=== PATIENT | female | born 1995 | race Caucasian/White ===

== ENCOUNTER 2016-07-09 23:03 | Emergency (ER) | payer OTHER ==
[~2016-07-09] VITALS: Ht 152.4 cm; Wt 62.6 kg
[~2016-07-09 23:03] MED LIST: AMOXICILLIN500 MG PO; CHERATUSSIN AC240 ML PO; CIPRO500 MG PO; DICLEGIS PO; MOTRIN600 MG PO; NAPROSYN500 MG PO; PREDNISONE10 MG PO; PRENATAL PO; PRENATAL1 TA7 PO; TERCONAZOLE0.4% V; VENTOLIN H0.09 MG/AC INH; ZOFRAN4 MG PO; Zofran4 MG PO
[2016-07-10] MEDS ORDERED: NAPROSYN500 MG PO (01:01)
== END 2016-07-10 01:44 | disposition home or self-care (01) ==
LOC: ED 23:03
DX: M25.461 Effusion, right knee (principal); F17.200 Nicotine dependence, unspecified, uncomplicated; Z91.040 Latex allergy status

== ENCOUNTER 2016-10-24 19:43 | Emergency (ER) | payer OTHER ==
[~2016-10-24] VITALS: Ht 152.4 cm; Wt 54.4 kg
[2016-10-24] MEDS ORDERED: AUGMENTIN 875875 MG PO (20:45)
== END 2016-10-24 22:09 | disposition home or self-care (01) ==
LOC: ED 19:43
DX: H65.93 Unspecified nonsuppurative otitis media, bilateral (principal); F17.200 Nicotine dependence, unspecified, uncomplicated; Z98.890 Other specified postprocedural states; Z91.041 Radiographic dye allergy status

== ENCOUNTER 2016-12-02 19:48 | Emergency (ER) | payer OTHER ==
[~2016-12-02] VITALS: Ht 152.4 cm; Wt 56.7 kg
[~2016-12-02 19:48] MED LIST changes: +AUGMENTIN 875875 MG PO
[2016-12-02] MEDS ORDERED: AMOXICILLIN500 M2 PO (20:51)
[2016-12-02] MEDS ORDERED: PREDNISONE20 M1 PO (20:51)
== END 2016-12-02 20:58 | disposition home or self-care (01) ==
LOC: ED 19:48
DX: J20.9 Acute bronchitis, unspecified (principal); F17.210 Nicotine dependence, cigarettes, uncomplicated; Z91.040 Latex allergy status

== ENCOUNTER 2017-11-22 18:30 | Emergency (ER) | payer OTHER ==
[~2017-11-22] VITALS: Ht 152.4 cm; Wt 61.2 kg
[~2017-11-22 18:30] MED LIST changes: +AMOXICILLIN500 M2 PO; +PREDNISONE20 M1 PO
[2017-11-22 18:51] LABS: HEMATOCRIT 42.2 % (37.0-47.0); HEMOGLOBIN 14.8 g/dl (12.0-16.0); MEAN CORPUSCULAR HGB 31.6 pg (27.0-31.0); MEAN CORPUSCULAR HGB CONC 35.1 g/dl (33.0-37.0); MEAN PLATELET VOLUME 9.5 fl (9.6-12.3); PLATELET COUNT AUTOMATED 282 10*3/uL (130-400); RED BLOOD COUNT 4.69 10*6/uL (4.10-5.10); RED CELL DISTRI WIDTH 12.2 % (0-14.5); WHITE BLOOD COUNT 14.6 10*3/uL (4.8-10.8)
[2017-11-22 19:03] LABS: ACT PARTIAL THROMBO TIME 24.8 SECONDS (20.8-31.5)
[2017-11-22 19:06] LABS: ALBUMIN 3.9 gm/dl (3.1-4.5); ALKALINE PHOSPHATASE 62 U/L (45-117); BUN 19 mg/dl (7-24); CHLORIDE 105 mmol/L (98-107); LIPASE 102 U/L (73-393); SGOT/AST 15 IU/L (3-35); SGPT/ALT 24 U/L (12-78); SODIUM 137 mmol/L (136-145); TOTAL PROTEIN 7.5 gm/dL (6.4-8.2)
[2017-11-22 19:16] LABS: TOTAL CELLS COUNTED 100 #CELLS
[2017-11-22 19:17] LABS: PLATELET SUFFICIENCY NORMAL (NORMAL)
[2017-11-22 20:15] LABS: BILIRUBIN NEGATIVE (NEGATIVE); BLOOD NEGATIVE (NEGATIVE); CLARITY SL CLOUDY (CLEAR); COLOR YELLOW (YELLOW); GLUCOSE NEGATIVE (NEGATIVE); KETONE NEGATIVE (NEGATIVE); LEUKO ESTERASE TRACE (NEGATIVE); NITRITE NEGATIVE (NEGATIVE); SPECIFIC GRAVITY 1.025 (1.005-1.030); UROBILINOGEN 0.2 E.U./dl (0.2-1.0)
[2017-11-22 20:26] LABS: BACTERIA 2+; EPITHELIAL CELLS 16-20; RBC 0-2 rbc/hpf (0-2)
[2017-11-22] MEDS ORDERED: ZOFRAN ODT4 MG SL (22:28)
== END 2017-11-22 22:35 | disposition home or self-care (01) ==
LOC: ED 18:30
PROVIDERS: Nurse Practitioner Family
DX: R10.31 Right lower quadrant pain (principal); R19.7 Diarrhea, unspecified; F17.200 Nicotine dependence, unspecified, uncomplicated; Z91.040 Latex allergy status

== ENCOUNTER 2018-02-02 21:36 | Emergency (ER) | payer OTHER ==
[~2018-02-02] VITALS: Ht 152.4 cm; Wt 72.6 kg
[~2018-02-02 21:36] MED LIST changes: +ZOFRAN ODT4 MG SL
[2018-02-02] MEDS ORDERED: PENICILLIN VK500 MG PO (23:39)
== END 2018-02-03 00:35 | disposition home or self-care (01) ==
LOC: ED 21:36
DX: K04.7 Periapical abscess without sinus (principal); F17.200 Nicotine dependence, unspecified, uncomplicated; Z91.041 Radiographic dye allergy status

== ENCOUNTER 2018-07-29 21:53 | Emergency (ER) | payer OTHER ==
[~2018-07-29] VITALS: Ht 152.4 cm; Wt 77.1 kg
[~2018-07-29 21:53] MED LIST changes: +PENICILLIN VK500 MG PO
== END 2018-07-30 01:17 | disposition home or self-care (01) ==
LOC: ED 21:53
DX: G43.909 Migraine, unspecified, not intractable, without status migrainosus (principal); Z91.040 Latex allergy status

== ENCOUNTER 2018-12-12 18:07 | Emergency (ER) | payer OTHER ==
[~2018-12-12] VITALS: Ht 152.4 cm; Wt 79.4 kg
[2018-12-12] MEDS ORDERED: PREDNISONE20 M1 PO (21:50)
[2018-12-12] MEDS ORDERED: TESSALON PERLE100 M1 PO (21:50)
[2018-12-12] MEDS ORDERED: PROVENTIL HFA6.7 GM INH (21:50)
== END 2018-12-12 22:00 | disposition home or self-care (01) ==
LOC: ED 18:07
DX: J40 Bronchitis, not specified as acute or chronic (principal); F17.200 Nicotine dependence, unspecified, uncomplicated; Z91.040 Latex allergy status; Z79.2 Long term (current) use of antibiotics

== ENCOUNTER 2019-02-11 22:41 | Emergency (ER) | payer OTHER ==
[~2019-02-11] VITALS: Ht 152.4 cm; Wt 69.4 kg
[~2019-02-11 22:41] MED LIST changes: +PROVENTIL HFA6.7 GM INH; +TESSALON PERLE100 M1 PO
[2019-02-11 23:16] LABS: BILIRUBIN NEGATIVE (NEGATIVE); BLOOD NEGATIVE (NEGATIVE); CLARITY SL CLOUDY (CLEAR); COLOR YELLOW (YELLOW); GLUCOSE NEGATIVE (NEGATIVE); KETONE NEGATIVE (NEGATIVE); LEUKO ESTERASE TRACE (NEGATIVE); NITRITE NEGATIVE (NEGATIVE); SPECIFIC GRAVITY >= 1.030 (1.005-1.030); UROBILINOGEN 0.2 E.U./dl (0.2-1.0)
[2019-02-11 23:22] LABS: BACTERIA 1+; EPITHELIAL CELLS 45-50
[2019-02-11 23:37] LABS: BASO # 0.1 10*3/uL (0.0-0.1); BASO % 0.3 % (0.0-1.0); EOS % 0.2 % (1.0-4.0); HEMATOCRIT 43.3 % (37.0-47.0); HEMOGLOBIN 15.2 g/dl (12.0-16.0); LYMPH # 4.6 10*3/uL (1.3-4.4); LYMPH % 28.5 % (27.0-41.0); MEAN CELL VOLUME 91.5 fl (81.0-99.0); MEAN CORPUSCULAR HGB 32.1 pg (27.0-31.0); MEAN CORPUSCULAR HGB CONC 35.1 g/dl (33.0-37.0); MEAN PLATELET VOLUME 9.3 fl (9.6-12.3); MONO # 1.2 10*3/uL (0.1-1.0); MONO % 7.7 % (3.0-9.0); NEUT # 10.1 10*3/uL (2.3-7.9); NEUT % 63.1 % (47.0-73.0); PLATELET COUNT AUTOMATED 302 10*3/uL (130-400); RED BLOOD COUNT 4.73 10*6/uL (4.10-5.10); RED CELL DISTRI WIDTH 12.4 % (0-14.5)
[2019-02-11 23:54] LABS: ALKALINE PHOSPHATASE 55 U/L (45-117); BUN 13 mg/dl (7-24); CHLORIDE 110 mmol/L (98-107); CREATININE 0.63 mg/dL (0.55-1.02); LIPASE 63 U/L (73-393); POTASSIUM 3.9 mmol/L (3.5-5.1); SGOT/AST 10 IU/L (3-35); SGPT/ALT 20 U/L (12-78); SODIUM 138 mmol/L (136-145); TOTAL PROTEIN 7.1 gm/dL (6.4-8.2)
[2019-02-12] MEDS ORDERED: ZOFRAN4 MG PO (00:44)
[2019-02-14 08:06] LABS: GONOCOCCUS BY NAA Negative (Negative)
== END 2019-02-12 01:00 | disposition home or self-care (01) ==
LOC: ED 22:41
PROVIDERS: Physician Assistant
DX: A08.4 Viral intestinal infection, unspecified (principal); R19.7 Diarrhea, unspecified; R11.2 Nausea with vomiting, unspecified; F17.200 Nicotine dependence, unspecified, uncomplicated; Z91.040 Latex allergy status; Z79.2 Long term (current) use of antibiotics; Z79.899 Other long term (current) drug therapy

== ENCOUNTER 2019-03-07 14:00 | Emergency (ER) | payer OTHER ==
[~2019-03-07] VITALS: Ht 152.4 cm; Wt 71.7 kg
[2019-03-07 15:18] LABS: BASO % 0.3 % (0.0-1.0); EOS % 0.5 % (1.0-4.0); HEMATOCRIT 48.2 % (37.0-47.0); HEMOGLOBIN 16.4 g/dl (12.0-16.0); LYMPH # 1.7 10*3/uL (1.3-4.4); LYMPH % 19.7 % (27.0-41.0); MEAN CELL VOLUME 92.9 fl (81.0-99.0); MEAN CORPUSCULAR HGB 31.6 pg (27.0-31.0); MEAN PLATELET VOLUME 9.5 fl (9.6-12.3); MONO # 0.8 10*3/uL (0.1-1.0); MONO % 8.7 % (3.0-9.0); NEUT # 6.3 10*3/uL (2.3-7.9); NEUT % 70.6 % (47.0-73.0); PLATELET COUNT AUTOMATED 277 10*3/uL (130-400); RED BLOOD COUNT 5.19 10*6/uL (4.10-5.10); RED CELL DISTRI WIDTH 12.3 % (0-14.5); WHITE BLOOD COUNT 8.9 10*3/uL (4.8-10.8)
[2019-03-07 15:32] LABS: ALBUMIN 4.4 gm/dl (3.1-4.5); ALKALINE PHOSPHATASE 66 U/L (45-117); BUN 10 mg/dl (7-24); CHLORIDE 108 mmol/L (98-107); CREATININE 0.76 mg/dL (0.55-1.02); POTASSIUM 3.8 mmol/L (3.5-5.1); SGOT/AST 18 IU/L (3-35); SGPT/ALT 23 U/L (12-78); SODIUM 138 mmol/L (136-145); TOTAL PROTEIN 7.9 gm/dL (6.4-8.2)
[2019-03-07] MEDS ORDERED: ZYRTEC10 M2 PO (17:27)
[2019-03-07] MEDS ORDERED: PREDNISONE20 M1 PO (17:27)
== END 2019-03-07 17:28 | disposition home or self-care (01) ==
LOC: ED 14:00
PROVIDERS: Physician Assistant
DX: B34.9 Viral infection, unspecified (principal); R19.7 Diarrhea, unspecified; R11.10 Vomiting, unspecified; Z91.040 Latex allergy status

== ENCOUNTER 2019-04-23 23:32 | Emergency (ER) | payer OTHER ==
[~2019-04-23] VITALS: Ht 152.4 cm; Wt 68.0 kg
[~2019-04-23 23:32] MED LIST changes: +ZYRTEC10 M2 PO
== END 2019-04-24 00:41 | disposition home or self-care (01) ==
LOC: ED 23:32
DX: R11.10 Vomiting, unspecified (principal); Z79.899 Other long term (current) drug therapy; G43.909 Migraine, unspecified, not intractable, without status migrainosus; Z91.040 Latex allergy status

== ENCOUNTER 2019-05-12 20:18 | Emergency (ER) | payer OTHER ==
[~2019-05-12] VITALS: Ht 152.4 cm; Wt 68.0 kg
[2019-05-12 21:08] LABS: HEMOGLOBIN 14.5 g/dl (12.0-16.0); MEAN CELL VOLUME 92.3 fl (81.0-99.0); MEAN CORPUSCULAR HGB 31.9 pg (27.0-31.0); MEAN CORPUSCULAR HGB CONC 34.5 g/dl (33.0-37.0); MEAN PLATELET VOLUME 9.4 fl (9.6-12.3); PLATELET COUNT AUTOMATED 272 10*3/uL (130-400); RED BLOOD COUNT 4.55 10*6/uL (4.10-5.10); RED CELL DISTRI WIDTH 12.6 % (0-14.5)
[2019-05-12 21:25] LABS: ALBUMIN 3.6 gm/dl (3.1-4.5); ALKALINE PHOSPHATASE 64 U/L (45-117); BUN 15 mg/dl (7-24); CHLORIDE 109 mmol/L (98-107); CREATININE 0.66 mg/dL (0.55-1.02); LIPASE 92 U/L (73-393); POTASSIUM 3.6 mmol/L (3.5-5.1); SGOT/AST 15 IU/L (3-35); SGPT/ALT 22 U/L (12-78); SODIUM 140 mmol/L (136-145); TOTAL PROTEIN 6.9 gm/dL (6.4-8.2)
[2019-05-12 21:27] LABS: ATYPICAL LYMPHS 6 % (0-0); TOTAL CELLS COUNTED 100 #CELLS
[2019-05-12 21:28] LABS: BURR CELLS FEW; PLATELET SUFFICIENCY NORMAL (NORMAL)
[2019-05-12 21:43] LABS: BILIRUBIN NEGATIVE (NEGATIVE); CLARITY SL CLOUDY (CLEAR); COLOR YELLOW (YELLOW); GLUCOSE NEGATIVE (NEGATIVE); KETONE NEGATIVE (NEGATIVE); SPECIFIC GRAVITY 1.015 (1.005-1.030)
[2019-05-12 21:44] LABS: BLOOD NEGATIVE (NEGATIVE); EPITHELIAL CELLS TNTC; LEUKO ESTERASE 2+ (NEGATIVE); NITRITE NEGATIVE (NEGATIVE); RBC 0-2 rbc/hpf (0-2); UROBILINOGEN 0.2 E.U./dl (0.2-1.0)
[2019-05-12 21:45] LABS: BACTERIA 1+; YEAST 1+
== END 2019-05-12 23:52 | disposition home or self-care (01) ==
LOC: ED 20:18
PROVIDERS: Emergency Medicine
DX: R10.30 Lower abdominal pain, unspecified (principal); R19.7 Diarrhea, unspecified; Z91.040 Latex allergy status; Z79.899 Other long term (current) drug therapy; Z79.2 Long term (current) use of antibiotics

== ENCOUNTER 2019-06-06 23:04 | Emergency (ER) | payer OTHER ==
[~2019-06-06] VITALS: Ht 152.4 cm; Wt 68.0 kg
[2019-06-06 23:49] LABS: MEAN CELL VOLUME 93.4 fl (81.0-99.0); MEAN CORPUSCULAR HGB 31.9 pg (27.0-31.0); MEAN CORPUSCULAR HGB CONC 34.1 g/dl (33.0-37.0); MEAN PLATELET VOLUME 9.3 fl (9.6-12.3); PLATELET COUNT AUTOMATED 287 10*3/uL (130-400); RED BLOOD COUNT 4.39 10*6/uL (4.10-5.10); RED CELL DISTRI WIDTH 12.5 % (0-14.5); WHITE BLOOD COUNT 15.2 10*3/uL (4.8-10.8)
[2019-06-07 00:03] LABS: ALBUMIN 3.4 gm/dl (3.1-4.5); ALKALINE PHOSPHATASE 54 U/L (45-117); BUN 17 mg/dl (7-24); CHLORIDE 110 mmol/L (98-107); CREATININE 0.62 mg/dL (0.55-1.02); POTASSIUM 3.9 mmol/L (3.5-5.1); SGOT/AST 26 IU/L (3-35); SGPT/ALT 36 U/L (12-78); SODIUM 139 mmol/L (136-145); TOTAL PROTEIN 6.7 gm/dL (6.4-8.2)
[2019-06-07 00:11] LABS: BASOPHILS 1 % (0-1); PLATELET SUFFICIENCY NORMAL (NORMAL); TOTAL CELLS COUNTED 100 #CELLS
[2019-06-07 00:20] LABS: BILIRUBIN NEGATIVE (NEGATIVE); BLOOD NEGATIVE (NEGATIVE); CLARITY CLEAR (CLEAR); COLOR YELLOW (YELLOW); GLUCOSE NEGATIVE (NEGATIVE); KETONE NEGATIVE (NEGATIVE); LEUKO ESTERASE NEGATIVE (NEGATIVE); NITRITE NEGATIVE (NEGATIVE); PH 6.5 (5.0-9.0); UROBILINOGEN 0.2 E.U./dl (0.2-1.0)
[2019-06-07 00:25] LABS: BACTERIA TRACE; EPITHELIAL CELLS 16-20
[2019-06-07] MEDS ORDERED: FLAGYL500 MG PO (01:48)
[2019-06-07] MEDS ORDERED: DICYCLOMINE HCL10 MG PO (01:48)
== END 2019-06-07 02:08 | disposition home or self-care (01) ==
LOC: ED 23:04
PROVIDERS: Emergency Medicine Emergency Medical Services
DX: K52.9 Noninfective gastroenteritis and colitis, unspecified (principal); G43.909 Migraine, unspecified, not intractable, without status migrainosus; F17.200 Nicotine dependence, unspecified, uncomplicated; Z91.040 Latex allergy status; Z79.899 Other long term (current) drug therapy

== ENCOUNTER 2019-08-07 22:35 | Emergency (ER) | payer OTHER ==
[~2019-08-07] VITALS: Ht 152.4 cm; Wt 77.1 kg
[~2019-08-07 22:35] MED LIST changes: +DICYCLOMINE HCL10 MG PO; +FLAGYL500 MG PO
[2019-08-08] MEDS ORDERED: FIORINAL 50-321 EACH PO (00:14)
== END 2019-08-08 00:56 | disposition home or self-care (01) ==
LOC: ED 22:35
DX: G43.511 Persistent migraine aura without cerebral infarction, intractable, with status migrainosus (principal); Z91.040 Latex allergy status

== ENCOUNTER 2020-07-13 17:11 | Emergency (ER) | payer OTHER ==
[~2020-07-13] VITALS: Ht 152.4 cm; Wt 81.6 kg
[~2020-07-13 17:11] MED LIST changes: +FIORINAL 50-321 EACH PO
[2020-07-13 18:38] LABS: BILIRUBIN Negative (Negative); BLOOD Negative (Negative); CLARITY Turbid (Clear); COLOR Yellow (Yellow); GLUCOSE Negative (Negative); KETONE Negative (Negative); LEUKO ESTERASE 2+ (Negative); NITRITE Negative (Negative); SPECIFIC GRAVITY 1.025 (1.001-1.030)
[2020-07-13 19:07] LABS: EPITHELIAL CELLS 51-100
[2020-07-13 19:56] LABS: BASO # 0.1 10*3/uL (0.0-0.1); BASO % 0.6 % (0.0-1.0); EOS # 0.2 10*3/uL (0.0-0.4); EOS % 2.2 % (1.0-4.0); LYMPH # 4.2 10*3/uL (1.3-4.4); LYMPH % 41.5 % (27.0-41.0); MEAN CELL VOLUME 91.1 fl (81.0-99.0); MEAN CORPUSCULAR HGB CONC 35.1 g/dl (33.0-37.0); MEAN PLATELET VOLUME 9.4 fl (9.6-12.3); MONO # 0.7 10*3/uL (0.1-1.0); MONO % 6.8 % (3.0-9.0); NEUT % 48.6 % (47.0-73.0); PLATELET COUNT AUTOMATED 324 10*3/uL (130-400); RED BLOOD COUNT 4.72 10*6/uL (4.10-5.10); RED CELL DISTRI WIDTH 11.9 % (0-14.5); WHITE BLOOD COUNT 10.2 10*3/uL (4.8-10.8)
[2020-07-13 20:18] LABS: ALBUMIN 3.5 gm/dl (3.1-4.5); ALKALINE PHOSPHATASE 59 U/L (45-117); BUN 17 mg/dl (7-24); CHLORIDE 110 mmol/L (98-107); CREATININE 0.64 mg/dL (0.55-1.02); POTASSIUM 4.2 mmol/L (3.5-5.1); SGOT/AST 15 IU/L (3-35); SGPT/ALT 21 U/L (12-78); SODIUM 137 mmol/L (136-145); TOTAL PROTEIN 7.6 gm/dL (6.4-8.2)
[2020-07-13] MEDS ORDERED: PYRIDIUM200 M1 PO (20:31)
[2020-07-13] MEDS ORDERED: CEFUROXIME AXE500 MG PO (20:32)
== END 2020-07-13 19:17 | disposition home or self-care (01) ==
LOC: ED 17:11
PROVIDERS: Physician Assistant
DX: R30.0 Dysuria (principal); Z91.040 Latex allergy status; Z79.899 Other long term (current) drug therapy; Z79.2 Long term (current) use of antibiotics

== ENCOUNTER → 2021-09-12 | Outpatient (CLI) | payer OTHER ==
[~2021-09-12] MED LIST changes: +CEFUROXIME AXE500 MG PO; +PYRIDIUM200 M1 PO
[2021-09-12 16:54] LABS: HEMATOCRIT 42.6 % (37.0-47.0); MEAN CELL VOLUME 90.6 fl (81.0-99.0); MEAN CORPUSCULAR HGB 32.3 pg (27.0-31.0); MEAN CORPUSCULAR HGB CONC 35.7 g/dl (33.0-37.0); MEAN PLATELET VOLUME 9.5 fl (9.6-12.3); RED BLOOD COUNT 4.7 10*6/uL (4.10-5.10); RED CELL DISTRI WIDTH 12.6 % (0-14.5); WHITE BLOOD COUNT 9.5 10*3/uL (4.8-10.8)
[2021-09-12 17:20] LABS: ALKALINE PHOSPHATASE 54 U/L (45-117); BUN 14 mg/dl (7-24); CHLORIDE 111 mmol/L (98-107); CHOLESTEROL 131 mg/dL (<200); CREATININE 0.79 mg/dL (0.55-1.02); FREE T4 0.93 ng/dl (0.76-1.46); LDL CHOLESTEROL 80 mg/dL (9-159); POTASSIUM 3.8 mmol/L (3.5-5.1); SGOT/AST 13 IU/L (3-35); SGPT/ALT 20 U/L (12-78); SODIUM 142 mmol/L (136-145); TOTAL PROTEIN 7.6 gm/dL (6.4-8.2); TRIGLYCERIDES 95 mg/dl (<150)
[2021-09-12 17:25] LABS: THYROID STIM HORMONE (HS) 0.442 uIU/ml (0.358-4.75)
[2021-09-12 17:27] LABS: VITAMIN D, 25-HYDROXY 23.6 ng/mL (30-100)
== END ==
LOC: LAB 16:35
PROVIDERS: ATTEND Family Medicine
DX: Z00.00 Encounter for general adult medical examination without abnormal findings (principal); E55.9 Vitamin D deficiency, unspecified; E78.00 Pure hypercholesterolemia, unspecified

== ENCOUNTER → 2022-06-09 | Outpatient (CLI) | payer OTHER | END | disposition home or self-care (01) | LOC: RAD 10:15 | PROVIDERS: ATTEND Family Medicine | DX: R07.89 Other chest pain (principal); R05.9 Cough, unspecified; R06.02 Shortness of breath ==

== ENCOUNTER → 2022-06-14 | Outpatient (CLI) | payer OTHER ==
[2022-06-14 11:59] LABS: HEMATOCRIT 41.4 % (37.0-47.0); MEAN CORPUSCULAR HGB 31.9 pg (27.0-31.0); MEAN PLATELET VOLUME 9.4 fl (9.6-12.3); RED BLOOD COUNT 4.55 10*6/uL (4.10-5.10); RED CELL DISTRI WIDTH 12.1 % (0-14.5); WHITE BLOOD COUNT 9.7 10*3/uL (4.8-10.8)
[2022-06-14 13:00] LABS: ALKALINE PHOSPHATASE 59 U/L (46-116); BUN 14 mg/dl (9-23); CHLORIDE 110 mmol/L (98-107); CHOLESTEROL 124 mg/dL (<200); LDL CHOLESTEROL 71 mg/dL (9-159); SGPT/ALT 24 U/L (10-49); TOTAL PROTEIN 7.2 gm/dL (6.0-8.0); TRIGLYCERIDES 111 mg/dl (<150)
[2022-06-14 13:02] LABS: VITAMIN D, 25-HYDROXY 60.2 ng/mL (30-100)
== END | disposition home or self-care (01) ==
LOC: LAB 10:52
PROVIDERS: ATTEND Family Medicine
DX: K58.9 Irritable bowel syndrome, unspecified (principal); E03.9 Hypothyroidism, unspecified; R51.9 Headache, unspecified; R53.83 Other fatigue

== ENCOUNTER 2022-10-16 20:25 | Emergency (ER) | payer OTHER ==
[~2022-10-16] VITALS: Ht 152.4 cm; Wt 81.6 kg
== END 2022-10-16 21:39 | disposition home or self-care (01) ==
LOC: ED 20:25
DX: S63.91XA Sprain of unspecified part of right wrist and hand, initial encounter (principal); G43.909 Migraine, unspecified, not intractable, without status migrainosus; Z91.040 Latex allergy status; Z79.899 Other long term (current) drug therapy; Z79.2 Long term (current) use of antibiotics; W23.0XXA Caught, crushed, jammed, or pinched between moving objects, initial encounter; Y93.89 Activity, other specified; Y92.89 Other specified places as the place of occurrence of the external cause; Y99.8 Other external cause status

== ENCOUNTER → 2022-12-11 | Outpatient (CLI) | payer OTHER ==
[2022-12-11 16:43] LABS: HEMATOCRIT 42.9 % (37.0-47.0); MEAN CELL VOLUME 90.3 fl (81.0-99.0); MEAN CORPUSCULAR HGB 32.4 pg (27.0-31.0); MEAN CORPUSCULAR HGB CONC 35.9 g/dl (33.0-37.0); MEAN PLATELET VOLUME 8.8 fl (9.6-12.3); RED BLOOD COUNT 4.75 10*6/uL (4.10-5.10); RED CELL DISTRI WIDTH 12.4 % (0-14.5); WHITE BLOOD COUNT 11.4 10*3/uL (4.8-10.8)
[2022-12-11 17:11] LABS: ALKALINE PHOSPHATASE 65 U/L (46-116); BUN 9 mg/dl (9-23); CHLORIDE 110 mmol/L (98-107); POTASSIUM 4.1 mmol/L (3.4-5.1); SGPT/ALT 18 U/L (5-49); TOTAL PROTEIN 7.6 gm/dL (6.0-8.0)
== END | disposition home or self-care (01) ==
LOC: LAB 16:15
PROVIDERS: ATTEND Family Medicine
DX: M25.562 Pain in left knee (principal); R60.9 Edema, unspecified; M79.10 Myalgia, unspecified site; M25.50 Pain in unspecified joint

== ENCOUNTER 2023-04-19 19:07 | Emergency (ER) | payer SELFPAY ==
[~2023-04-19] VITALS: Ht 154.9 cm; Wt 68.0 kg
[2023-04-19] MEDS ORDERED: TOPIRAMATE100 M2 PO (19:15)
== END 2023-04-19 21:18 | disposition home or self-care (01) ==
LOC: ED 19:07
DX: S06.0XAA Concussion with loss of consciousness status unknown, initial encounter (principal); M25.562 Pain in left knee; R42 Dizziness and giddiness; R11.0 Nausea; Z91.040 Latex allergy status; Z98.890 Other specified postprocedural states; W10.9XXA Fall (on) (from) unspecified stairs and steps, initial encounter; Y93.89 Activity, other specified; Y92.009 Unspecified place in unspecified non-institutional (private) residence as the place of occurrence of the external cause; Y99.8 Other external cause status

== ENCOUNTER 2023-08-20 23:00 | Emergency (ER) | payer OTHER ==
[~2023-08-20] VITALS: Ht 152.4 cm; Wt 72.6 kg
[~2023-08-20 23:00] MED LIST changes: +TOPIRAMATE100 M2 PO
== END 2023-08-21 03:58 | disposition left against medical advice (07) ==
LOC: ED 23:00
DX: M79.10 Myalgia, unspecified site (principal); Z91.040 Latex allergy status; Z53.21 Procedure and treatment not carried out due to patient leaving prior to being seen by health care provider

== ENCOUNTER → 2023-12-13 | Outpatient (CLI) | payer OTHER | END | disposition home or self-care (01) | LOC: RAD 12:04 | PROVIDERS: ATTEND Family Medicine | DX: M25.461 Effusion, right knee (principal) ==

== ENCOUNTER 2024-02-04 22:53 | Emergency (ER) | payer OTHER ==
[~2024-02-04] VITALS: Ht 165.1 cm; Wt 72.6 kg
[~2024-02-04 22:53] MED LIST changes: +Ondansetron4 MG PO
[2024-02-05] MEDS ORDERED: methylPREDNISolone sod succ 125 MG VIAL IM ONE (02:05)
[2024-02-05] MEDS ORDERED: PREDNISONE20 M1 PO (02:06)
[2024-02-05] MEDS ORDERED: ZITHROMAX250 MG PO (02:06)
== END 2024-02-05 02:11 | disposition home or self-care (01) ==
LOC: ED 22:53
DX: B34.9 Viral infection, unspecified (principal); Z20.822 Contact with and (suspected) exposure to COVID-19; R06.00 Dyspnea, unspecified; Z91.040 Latex allergy status

== ENCOUNTER 2024-09-24 09:08 | Emergency (ER) | payer OTHER ==
[~2024-09-24] VITALS: Wt 95.3 kg
[~2024-09-24 09:08] MED LIST changes: +ZITHROMAX250 MG PO
[2024-09-24] MEDS ORDERED: fentaNYL CITRATE/PF 50 MCG/ML SYRINGE IV ONE (09:20)
[2024-09-24] MEDS ORDERED: SODIUM CHLORIDE 0.9% 1,000 ML IV ONE (09:20)
[2024-09-24] MEDS ORDERED: IOHEXOL 300 MG/ML 100 ML VIAL IV ONE (09:30)
[2024-09-24 09:41] LABS: BASO # 0.0 10*3/uL (0.0-0.1); BASO % 0.5 % (0.0-1.0); EOS # 0.1 10*3/uL (0.0-0.4); EOS % 0.9 % (1.0-4.0); MEAN CELL VOLUME 91.0 fl (81.0-99.0); MEAN CORPUSCULAR HGB 30.7 pg (27.0-31.0); MEAN PLATELET VOLUME 9.4 fl (9.6-12.3); MONO # 0.7 10*3/uL (0.1-1.0); MONO % 8.3 % (3.0-9.0); NEUT # 4.1 10*3/uL (2.3-7.9); NEUT % 49.0 % (47.0-73.0); NUCLEATED RED BLOOD CELL 0.0 % (0.0-0.0); NUCLEATED RED BLOOD CELL 0.0 10*3/uL (0.0-0.0); PLATELET COUNT AUTOMATED 289 10*3/uL (130-400); RED CELL DISTRI WIDTH 12.0 % (0-14.5)
[2024-09-24 10:07] LABS: BUN 14 mg/dl (9-23); SGPT/ALT 19 U/L (5-49)
[2024-09-24] MEDS ORDERED: MELOXICAM15 MG PO (11:42)
== END 2024-09-24 12:01 | disposition home or self-care (01) ==
LOC: ED 09:08
PROVIDERS: Emergency Medicine
DX: M79.604 Pain in right leg (principal); M79.605 Pain in left leg; M25.512 Pain in left shoulder; M25.511 Pain in right shoulder; M25.562 Pain in left knee; M54.2 Cervicalgia; R10.11 Right upper quadrant pain; R10.12 Left upper quadrant pain; R60.0 Localized edema; G43.909 Migraine, unspecified, not intractable, without status migrainosus; Z91.040 Latex allergy status; V89.2XXA Person injured in unspecified motor-vehicle accident, traffic, initial encounter; Y93.55 Activity, bike riding; Y92.828 Other wilderness area as the place of occurrence of the external cause; Y99.8 Other external cause status

== ENCOUNTER 2024-10-11 21:11 | Emergency (ER) | payer SELFPAY ==
[~2024-10-11] VITALS: Ht 154.9 cm; Wt 76.2 kg
[~2024-10-11 21:11] MED LIST changes: +MELOXICAM15 MG PO
[2024-10-11 21:42] LABS: BILIRUBIN Negative (Negative); BLOOD 3+ (Negative); CLARITY Turbid (Clear); COLOR Yellow (Yellow); KETONE Negative (Negative); LEUKO ESTERASE Negative (Negative); NITRITE Negative (Negative); PH 6.5 (4.5-8.0); SPECIFIC GRAVITY 1.020 (1.001-1.030); UROBILINOGEN 0.2 E.U./dl (0.0-1.0)
[2024-10-11 21:52] LABS: WBC 0-2 wbc/hpf (0-5)
[2024-10-11 21:53] LABS: BACTERIA 2+; RBC 0-2 rbc/hpf (0-2)
[2024-10-11] MEDS ORDERED: MACROBID100 M1 PO (22:21)
== END 2024-10-11 22:36 | disposition home or self-care (01) ==
LOC: ED 21:11
PROVIDERS: Nurse Practitioner Family
DX: O02.81 Inappropriate change in quantitative human chorionic gonadotropin (hCG) in early pregnancy (principal); O08.83 Urinary tract infection following an ectopic and molar pregnancy; N39.0 Urinary tract infection, site not specified; N93.9 Abnormal uterine and vaginal bleeding, unspecified; Z91.040 Latex allergy status; Z88.8 Allergy status to other drugs, medicaments and biological substances; Z79.899 Other long term (current) drug therapy

== ENCOUNTER 2025-01-09 21:05 | Emergency (ER) | payer OTHER ==
[~2025-01-09] VITALS: Ht 152.4 cm; Wt 72.6 kg
[~2025-01-09 21:05] MED LIST changes: +MACROBID100 M1 PO
[2025-01-09] MEDS ORDERED: diphenhydrAMINE hydrochloride 50 MG/ML VIAL IV ONE (21:55)
[2025-01-09] MEDS ORDERED: SODIUM CHLORIDE 0.9% 1,000 ML IV ONE (21:55)
[2025-01-09] MEDS ORDERED: ACETAMINOPHEN 325 MG TAB PO ONE (22:00)
[2025-01-09] MEDS ORDERED: Metoclopramide Hydrochloride 10 MG/2 ML VIAL IV ONE (22:00)
[2025-01-09] MEDS ORDERED: Dexamethasone Sodium Phospha 20 MG/5 ML VIAL IV ONE (22:00)
[2025-01-09] MEDS ORDERED: REGLAN10 M1 PO (23:43)
== END 2025-01-09 23:47 | disposition home or self-care (01) ==
LOC: ED 21:05
DX: G43.909 Migraine, unspecified, not intractable, without status migrainosus (principal); Z88.8 Allergy status to other drugs, medicaments and biological substances; Z91.040 Latex allergy status

== ENCOUNTER 2025-01-24 17:34 | Emergency (ER) | payer OTHER ==
[~2025-01-24] VITALS: Ht 154.9 cm; Wt 76.2 kg
[~2025-01-24 17:34] MED LIST changes: +REGLAN10 M1 PO
== END 2025-01-24 18:01 | disposition home or self-care (01) ==
LOC: ED 17:34
DX: D22.5 Melanocytic nevi of trunk (principal); Z91.040 Latex allergy status; Z88.8 Allergy status to other drugs, medicaments and biological substances